=== PATIENT | female | born 1940 | race Caucasian/White ===

== ENCOUNTER 2020-09-22 12:34 | Emergency (ER) | payer MEDICARE, SELFPAY ==
[~2020-09-22] VITALS: Ht 162.6 cm; Wt 77.3 kg
[~2020-09-22 12:34] MED LIST: LEVO88TA4 PO; VALS80TA2 PO
[2020-09-22] MEDS ORDERED: CEPH250 PO (12:54)
[2020-09-22] MEDS ORDERED: ASPI81TA87 PO (12:54)
[2020-09-22] MEDS ORDERED: LISI-894 PO (12:54)
[2020-09-22] MEDS ORDERED: CETI-450 PO (12:54)
[2020-09-22 14:09] LABS: BASOPHILS % (AUTO) 0.5 % (0.0-2.0); EOSINOPHILS % (AUTO) 3.9 % (1.0-6.0); HEMATOCRIT 33.7 % (36-46); HEMOGLOBIN 11.2 g/dL (12.0-16.0); LYMPHOCYTES # (AUTO) 1.3 K/uL (1.0-4.8); LYMPHOCYTES % (AUTO) 18.1 % (22.0-44.0); MEAN CORPUSCULAR HGB CONC 33.3 G/dL (31.0-37.0); MEAN CORPUSCULAR VOLUME 87 fL (80-100); MONOCYTES % (AUTO) 14.1 % (2.0-9.0); NEUTROPHILS # (AUTO) 4.5 K/uL (1.8-7.7); NEUTROPHILS % (AUTO) 63.4 % (40.0-70.0); PLATELET COUNT (AUTO) 407 K/uL (150-450); RED BLOOD CELL COUNT(AUTO) 3.86 MIL/uL (4.00-5.20); RED CELL DISTRIBUTION WIDTH 13.1 % (11.5-14.5)
[2020-09-22 14:18] LABS: ANION GAP 9 mmol/L (8-16); CALCIUM, TOTAL 9.1 mg/dL (8.8-10.5); CARBON DIOXIDE 28 mmol/L (22-29); CHLORIDE 99 mmol/L (98-107); CREATININE 0.75 mg/dL (0.60-1.30); GLOMERULAR FILTR. RATE CALC > 60 mL/min (>60); GLUCOSE,RANDOM 126 mg/dL (70-110); POTASSIUM 3.5 mmol/L (3.5-5.1); SODIUM SERUM 136 mmol/L (136-145); UREA NITROGEN, BLOOD 11 mg/dL (7-18)
[2020-09-22 14:24] LABS: ALANINE AMINOTRANSFERASE 41 U/L (12-78); ALKALINE PHOSPHATASE 125 U/L (46-116); ASPARTATE AMINOTRANSFERASE 23 U/L (15-37); BILIRUBIN,TOTAL 0.5 mg/dL (0.1-1.0); TOTAL PROTEIN, SERUM 7.6 g/dL (6.4-8.2)
[2020-09-22] MEDS ORDERED: IOHEXOL 350 MG/ML 100 ML VIAL ONE (14:28)
[2020-09-22] MEDS ORDERED: SODIUM CHLORIDE 0.9% 100 ML ONE (14:28)
[2020-09-22] MEDS ORDERED: SODIUM CHLORIDE 0.9% 1,000 ML IV ONE (15:45)
[2020-09-22 16:00] VITALS: BP 170/92
== END 2020-09-22 16:50 | disposition home or self-care (01) ==
LOC: EMS 12:39
DX: R91.8 Other nonspecific abnormal finding of lung field (principal); R05 Cough; I10 Essential (primary) hypertension; I25.10 Atherosclerotic heart disease of native coronary artery without angina pectoris; Z87.891 Personal history of nicotine dependence; Z90.710 Acquired absence of both cervix and uterus; Z79.899 Other long term (current) drug therapy
CPT/HCPCS: 36415; 71045; 71260; 80053; 81002; 85025; 96360; 99284; A9575; J7050